=== PATIENT | female | born 1980 | race Caucasian/White ===

== ENCOUNTER 2025-04-26 13:37 | Emergency (ER) | payer OTHER, SELFPAY | END 2025-04-26 15:27 | disposition home or self-care (01) | LOC: BURERS 13:37 | DX: S52.572A Other intraarticular fracture of lower end of left radius, initial encounter for closed fracture (principal); S52.612A Displaced fracture of left ulna styloid process, initial encounter for closed fracture; F17.210 Nicotine dependence, cigarettes, uncomplicated; W19.XXXA Unspecified fall, initial encounter | CPT/HCPCS: 29125; 96374 ==